=== PATIENT | female | born 1950 | race Caucasian/White ===

== ENCOUNTER 2020-04-05 08:37 | Day surgery (SDC) | payer OTHER ==
[2020-03-30 09:48] VITALS: BMI 27.6
[2020-04-05] MEDS ORDERED: PROPOFOL 20 ML ONE ×2 (09:56→10:47)
[2020-04-05 11:01] VITALS: TEMP 98
[2020-04-05 12:16] VITALS: BP 122/78; PULSE 76
== END 2020-04-05 12:16 | disposition home or self-care (01) ==
LOC: FASU-ENDO 08:37
PROVIDERS: ATTEND Internal Medicine Gastroenterology
PROC: 0D5H8ZZ Destruction of Cecum, Via Natural or Artificial Opening Endoscopic (ICD-10-PCS; 2020-04-05)
PROC: 0DB98ZX Excision of Duodenum, Via Natural or Artificial Opening Endoscopic, Diagnostic (ICD-10-PCS; 2020-04-05)
PROC: 0DB68ZX Excision of Stomach, Via Natural or Artificial Opening Endoscopic, Diagnostic (ICD-10-PCS; 2020-04-05)
PROC: 0DBN8ZX Excision of Sigmoid Colon, Via Natural or Artificial Opening Endoscopic, Diagnostic (ICD-10-PCS; principal; 2020-04-05 10:06)
DX: Z09 Encounter for follow-up examination after completed treatment for conditions other than malignant neoplasm (principal); Z86.010 Personal history of colon polyps; D12.5 Benign neoplasm of sigmoid colon; K55.20 Angiodysplasia of colon without hemorrhage; K29.50 Unspecified chronic gastritis without bleeding; K31.9 Disease of stomach and duodenum, unspecified; B96.81 Helicobacter pylori [H. pylori] as the cause of diseases classified elsewhere; K44.9 Diaphragmatic hernia without obstruction or gangrene; Q27.33 Arteriovenous malformation of digestive system vessel
CPT/HCPCS: 88305-TC; 88342-TC

== ENCOUNTER 2020-07-20 20:33 | Observation (INO) | payer OTHER ==
[2020-07-20 20:50] VITALS: BMI 29.0
[2020-07-20 21:40] LABS: BASO % 1.2 % (0-2.0); EOS % 2.5 % (0-4.5); HEMATOCRIT 42.4 % (32.4-45.2); HEMOGLOBIN 13.9 GM/dL (10.7-15.3); LYMPH % 26.8 % (8-40); MCHC 32.7 g/dl (32.0-36.0); MEAN CELL VOLUME 88.8 fl (80-96); MEAN PLT VOLUME 7.1 fl (7.5-11.1); MONO % 5.6 % (3.8-10.2); NEUT % 63.9 % (42.8-82.8); PLATELET COUNT 311 K/MM3 (134-434); RBC 4.78 M/mm3 (3.60-5.2); RDW 15.5 % (11.6-15.6); WHITE BLOOD COUNT 9.3 K/mm3 (4.0-10.0)
[2020-07-20] MEDS ORDERED: ASPIRIN 81 MG CHEWABLE TABLETS PO ONE (21:43)
[2020-07-20] MEDS ORDERED: ASPIRIN 81 MG CHEWABLE TABLETS ONE (21:44)
[2020-07-20 21:47] LABS: INR 0.96 (0.83-1.09); PROTHROMBIN TIME (PATIENT) 11.6 SEC (9.7-13.0)
[2020-07-20 21:50] LABS: ACTIVATED PTT 29.4 SECONDS (25.2-36.5)
[2020-07-20 22:07] LABS: CHLORIDE 107 mmol/L (98-107); POTASSIUM 4.3 mmol/L (3.5-5.1); SODIUM 140 mmol/L (136-145)
[2020-07-20 22:09] LABS: ANION GAP 7 MMOL/L (8-16); BLOOD UREA NITROGEN 15.5 mg/dL (7-18); CALCIUM 10.1 mg/dL (8.5-10.1); CO2 26 mmol/L (21-32); GLUCOSE,RANDOM 100 mg/dL (74-106)
[2020-07-20 22:12] LABS: SGOT/AST 19 U/L (15-37); SGPT/ALT 26 U/L (13-61)
[2020-07-20 22:13] LABS: BILIRUBIN,TOTAL 0.3 mg/dL (0.2-1); CREATININE 0.9 mg/dL (0.55-1.3)
[2020-07-20 22:14] LABS: TOT PROT 7.8 g/dl (6.4-8.2)
[2020-07-20 22:15] LABS: ALK PHOS 146 U/L (45-117)
[2020-07-20 22:17] LABS: N-TERMINAL BNP 34.7 pg/ml (5-125)
[2020-07-21] MEDS ORDERED: LISINOPRIL 5 MG TABLET PO ONE (03:00)
[2020-07-21] MEDS ORDERED: LISINOPRIL 5 MG TABLET ONE (03:12)
[2020-07-21 06:57] LABS: BASO % 0.8 % (0-2.0); EOS % 3.7 % (0-4.5); HEMATOCRIT 41.2 % (32.4-45.2); LYMPH % 31.1 % (8-40); MCH 29.6 pg (25.7-33.7); MCHC 33.9 g/dl (32.0-36.0); MEAN CELL VOLUME 87.3 fl (80-96); MEAN PLT VOLUME 6.9 fl (7.5-11.1); MONO % 6.1 % (3.8-10.2); NEUT % 58.3 % (42.8-82.8); PLATELET COUNT 283 K/MM3 (134-434); RBC 4.71 M/mm3 (3.60-5.2); RDW 15.2 % (11.6-15.6); WHITE BLOOD COUNT 8.3 K/mm3 (4.0-10.0)
[2020-07-21 07:15] LABS: POTASSIUM 4.1 mmol/L (3.5-5.1)
[2020-07-21 07:17] LABS: ALBUMIN 3.7 g/dl (3.4-5.0); BLOOD UREA NITROGEN 13.2 mg/dL (7-18); CALCIUM 9.2 mg/dL (8.5-10.1); MAGNESIUM 2.2 mg/dL (1.8-2.4)
[2020-07-21 07:20] LABS: CHOLESTEROL 219 mg/dL (50-200); TRIGLYCERIDES 166 mg/dL (0-150)
[2020-07-21 07:21] LABS: CREATININE 0.8 mg/dL (0.55-1.3); LDL CHOLESTEROL (ONLY SJRH) 114 mg/dL (5-100)
[2020-07-21 07:22] LABS: BILIRUBIN,TOTAL 0.5 mg/dL (0.2-1); TOT PROT 7.4 g/dl (6.4-8.2)
[2020-07-21 07:23] LABS: HDL CHOLESTEROL 72 mg/dL (40-60)
[2020-07-21] MEDS ORDERED: LISINOPRIL 5 MG TABLET PO SCH (10:00)
[2020-07-21] MEDS ORDERED: ENOXAPARIN NA (PORCINE) 40 MG/0.4 ML DISP.SYRIN SQ SCH (10:00)
[2020-07-21] MEDS ORDERED: ATORVASTATIN CA 40 MG TABLET (FP) PO SCH (10:15)
[2020-07-21] MEDS ORDERED: HEPARIN NA (PORCINE) 5,000 UNITS/ML 1ML VIAL IVPUSH PRN ×2 (10:19)
[2020-07-21] MEDS ORDERED: HEPARIN SOD,PORK IN 0.45% NACL 25,000 UNITS/500 ML INFUS.BAG IVPB SCH (10:30)
[2020-07-21] MEDS ORDERED: metoPROLOL SUCCINATE 25 MG TAB.SR.24H (FP) ONE (11:17)
[2020-07-21] MEDS ORDERED: HEPARIN INFUSION - 25,000 UNITS/500 ML INFUS.BAG IVPB ONE (11:17)
[2020-07-21] MEDS: metoPROLOL SUCCINATE 25 MG TAB.SR.24H (FP) PO SCH (11:20)
[2020-07-21] MEDS ORDERED: ATORVASTATIN CA 40 MG TABLET (FP) ONE (11:34)
[2020-07-22] MEDS ORDERED: LEVOTHYROXINE NA 100 MCG TABLET (FP) PO SCH (07:00)
[2020-07-22 07:12] LABS: BASO % 0.6 % (0-2.0); EOS % 4.3 % (0-4.5); HEMATOCRIT 40.6 % (32.4-45.2); HEMOGLOBIN 13.2 GM/dL (10.7-15.3); LYMPH % 29.1 % (8-40); MCH 29.1 pg (25.7-33.7); MCHC 32.6 g/dl (32.0-36.0); MEAN PLT VOLUME 7.4 fl (7.5-11.1); MONO % 8.3 % (3.8-10.2); NEUT % 57.7 % (42.8-82.8); PLATELET COUNT 250 K/MM3 (134-434); RBC 4.55 M/mm3 (3.60-5.2); RDW 15.7 % (11.6-15.6); WHITE BLOOD COUNT 8.2 K/mm3 (4.0-10.0)
[2020-07-22 07:39] LABS: POTASSIUM 4.2 mmol/L (3.5-5.1)
[2020-07-22 08:06] LABS: CALCIUM 9.1 mg/dL (8.5-10.1)
[2020-07-22 08:07] LABS: ALBUMIN 3.4 g/dl (3.4-5.0); MAGNESIUM 2.3 mg/dL (1.8-2.4)
[2020-07-22 08:08] LABS: BILIRUBIN,TOTAL 0.4 mg/dL (0.2-1)
[2020-07-22 08:10] LABS: CREATININE 0.9 mg/dL (0.55-1.3); PHOSPHOROUS 3.9 mg/dL (2.5-4.9)
[2020-07-22 08:11] LABS: TOT PROT 6.8 g/dl (6.4-8.2)
[2020-07-22] MEDS ORDERED: ENOXAPARIN NA (PORCINE) 40 MG/0.4 ML DISP.SYRIN SQ SCH (10:00)
[2020-07-22] MEDS ORDERED: REGADENOSON 0.4 MG/5 ML PRE-FILLED SYRINGE IVPUSH ONE ×2 (10:00→10:15)
[2020-07-22] MEDS ORDERED: LISINOPRIL 10 MG TABLET PO SCH (10:00)
[2020-07-22] MEDS ORDERED: PT OWN MED DRAWER 7, Y5N ONE (11:08)
[2020-07-22] MEDS: metoPROLOL SUCCINATE 25 MG TAB.SR.24H (FP) PO SCH (12:05)
[2020-07-22 14:34] VITALS: BP 135/88; PULSE 88; TEMP 97.9
== END 2020-07-22 14:46 | disposition home or self-care (01) ==
LOC: JER 20:33 → INTOOBSV 21:29 → UNDOADMOB 21:29 → JERBED 21:29 → J4W 07-21 12:28
PROVIDERS: ADMIT Internal Medicine; ATTEND Internal Medicine
PROC: 3E023GC Introduction of Other Therapeutic Substance into Muscle, Percutaneous Approach (ICD-10-PCS; principal; 2020-07-21)
PROC: 3E033GC Introduction of Other Therapeutic Substance into Peripheral Vein, Percutaneous Approach (ICD-10-PCS; 2020-07-21)
DX: I16.0 Hypertensive urgency (principal); K21.9 Gastro-esophageal reflux disease without esophagitis; E78.5 Hyperlipidemia, unspecified; E03.9 Hypothyroidism, unspecified; Z87.891 Personal history of nicotine dependence; Z29.9 Encounter for prophylactic measures, unspecified; E66.3 Overweight; Z87.19 Personal history of other diseases of the digestive system; Z98.49 Cataract extraction status, unspecified eye; Z68.29 Body mass index [BMI] 29.0-29.9, adult
CPT/HCPCS: 36415; 71045-TC-FY; 78452-TC; 80053; 80061; 83036; 83721; 83735; 83880; 84100; 84443; 84484; 85025; 85610; 85730; 93005; 93010; 93017; 96365; 96372; 96375; 99285-25; A9502; C9803; G0378; J2785; U0003

== ENCOUNTER 2023-04-22 17:33 | Emergency (ER) | payer OTHER ==
[2023-04-22 17:49] VITALS: BP 156/85; PULSE 91; RESP 18; TEMP 98.2; BMI 28.3
[2023-04-22] MEDS ORDERED: ONDANSETRON 4 MG/2 ML VIAL IVPUSH ONE (18:39)
[2023-04-22] MEDS ORDERED: SODIUM CHLORIDE 0.9% 500 ML INFUS.BAG IV ONE (18:39)
[2023-04-22] MEDS ORDERED: MAG HYDROX/AL HYDROX/SIMETH 30 ML UNIT-DOSE CUP PO ONE (18:40)
[2023-04-22] MEDS ORDERED: FAMOTIDINE 20 MG/50 ML IVPB 20 MG/50 ML MG IVPB ONE ×2 (18:40→18:51)
[2023-04-22] MEDS ORDERED: ONDANSETRON 4 MG/2 ML VIAL ONE (18:51)
[2023-04-22] MEDS ORDERED: MAG HYDROX/AL HYDROX/SIMETH 30 ML UNIT-DOSE CUP ONE (18:51)
[2023-04-22 19:03] LABS: BASO % 0.5 % (0-2.0); EOS % 0.3 % (0-4.5); HEMATOCRIT 42.7 % (32.4-45.2); HEMOGLOBIN 14.3 GM/dL (10.7-15.3); LYMPH % 13.1 % (8-40); MCHC 33.6 g/dl (32.0-36.0); MEAN CELL VOLUME 92.4 fl (80-96); MEAN PLT VOLUME 6.5 fl (7.5-11.1); MONO % 3.6 % (3.8-10.2); NEUT % 82.5 % (42.8-82.8); PLATELET COUNT 310 10^3/uL (134-434); RBC 4.62 M/mm3 (3.60-5.2); RDW 12.8 % (11.6-15.6)
[2023-04-22 19:18] LABS: INR 1.01 (0.83-1.09); PROTHROMBIN TIME (PATIENT) 11.7 SEC (9.7-13.0)
[2023-04-22 19:21] LABS: ACTIVATED PTT 26.7 SECONDS (25.2-36.5)
[2023-04-22 19:28] LABS: POTASSIUM 5.6 mmol/L (3.5-5.1)
[2023-04-22 19:30] LABS: ALBUMIN 3.8 g/dl (3.4-5.0); CALCIUM 10.2 mg/dL (8.5-10.1)
[2023-04-22 19:31] LABS: BLOOD UREA NITROGEN 20.4 mg/dL (7-18); MAGNESIUM 2.1 mg/dL (1.8-2.4)
[2023-04-22 19:34] LABS: CREATININE 0.8 mg/dL (0.55-1.3)
[2023-04-22 19:35] LABS: BILIRUBIN,TOTAL 0.3 mg/dL (0.2-1); PHOSPHOROUS 3.7 mg/dL (2.5-4.9); TOT PROT 7.4 g/dl (6.4-8.2)
[2023-04-22] MEDS ORDERED: MECLIZINE HCL 25 MG TABLET (FP) PO ONE (19:53)
[2023-04-22] MEDS ORDERED: MECLIZINE HCL 25 MG TABLET (FP) ONE (20:02)
[2023-04-22] MEDS ORDERED: METOCLOPRAMIDE HCL INJECTION 10 MG/2 ML VIAL IVPUSH ONE (20:09)
[2023-04-22] MEDS ORDERED: ACETAMINOPHEN 1000 MG/100 ML BAG IVPB ONE (20:09)
== END 2023-04-22 21:50 | disposition home or self-care (01) ==
LOC: JER 17:33
PROC: 3E033GC Introduction of Other Therapeutic Substance into Peripheral Vein, Percutaneous Approach (ICD-10-PCS; principal; 2023-04-22)
PROC: 3E033GC Introduction of Other Therapeutic Substance into Peripheral Vein, Percutaneous Approach (ICD-10-PCS; 2023-04-22)
DX: R42 Dizziness and giddiness (principal); R51.9 Headache, unspecified; R11.2 Nausea with vomiting, unspecified
CPT/HCPCS: 36415; 70450-TC; 71046-TC-FY; 80053; 83735; 84100; 84443; 84484; 85025; 85610; 85730; 93005; 93010; 99285-25

== ENCOUNTER 2023-09-03 07:56 | Day surgery (SDC) | payer OTHER ==
[2023-08-31 11:33] VITALS: BMI 28.1
[2023-09-03 09:23] VITALS: RESP 19; TEMP 97.7
[2023-09-03 09:27] VITALS: BP 105/65; PULSE 85
== END 2023-09-03 09:33 | disposition home or self-care (01) ==
LOC: FASU-ENDO 07:56
PROVIDERS: ATTEND Internal Medicine Gastroenterology
PROC: 0DB68ZX Excision of Stomach, Via Natural or Artificial Opening Endoscopic, Diagnostic (ICD-10-PCS; 2023-09-03)
PROC: 0DB98ZX Excision of Duodenum, Via Natural or Artificial Opening Endoscopic, Diagnostic (ICD-10-PCS; principal; 2023-09-03 08:45)
DX: K29.50 Unspecified chronic gastritis without bleeding (principal); K25.9 Gastric ulcer, unspecified as acute or chronic, without hemorrhage or perforation
CPT/HCPCS: 88305-TC; 88342-TC